=== PATIENT | female | born 1990 | race Caucasian/White ===

== ENCOUNTER 2016-12-17 07:47 | Emergency (ER) | payer BC ==
[~2016-12-17] VITALS: Ht 157.5 cm; Wt 86.0 kg
[2016-12-17 07:51] VITALS: Ht 157.5 cm; Wt 86.0 kg
[2016-12-17] MEDS ORDERED: morphine 4 MG/ML VIAL IV STA (08:08)
[2016-12-17] MEDS ORDERED: ONDANSETRON 4 MG INJ IV STA (08:08)
[2016-12-17 08:39] LABS: BASOPHIL # 0.1 10^3/ul (0.0-0.1); BASOPHILS % 0.6 % (0.0-2.0); EOSINOPHILS # 0.2 10^3/ul (0.0-0.5); EOSINOPHILS % 2.2 % (0.0-7.0); HEMATOCRIT 41.3 % (37.0-47.0); HEMOGLOBIN 13.5 g/dl (12.0-16.0); LYMPHOCYTES # 2.7 10^3/ul (0.8-2.9); LYMPHOCYTES % 33.3 % (15.0-51.0); MEAN CORPUSCULAR HEMOGLOBIN 30.2 pg (29.0-33.0); MEAN CORPUSCULAR HGB CONC 32.7 g/dl (32.0-37.0); MEAN CORPUSCULAR VOLUME 92.4 fl (82.0-101.0); MEAN PLATELET VOLUME 9.3 fl (7.4-10.4); MONOCYTE # 0.6 10^3/ul (0.3-0.9); MONOCYTES % 7.8 % (0.0-11.0); NEUTROPHIL # 4.6 10^3/ul (1.6-7.5); NEUTROPHILS % 55.9 % (39.0-77.0); PLATELET COUNT 463 10^3/UL (140-415); RED BLOOD COUNT 4.47 10^6/ul (4.20-5.40); RED CELL DISTRIBUTION WIDTH 12.5 % (11.5-14.5); WHITE BLOOD COUNT 8.2 10^3/ul (4.8-10.8)
--- NOTE | 2016-12-17 08:40 | ERD ---
ER Documentation Chief Complaint Chief Complaint Complains of abdominal pain Hx of gall stones HPI This is a 26-year-old male who presents the emergency department today complaining of abdominal pain for a while. Patient states that she was told she had gallstones in the past. States that since that time she has been diagnosed she has had intermittent pain and symptoms 2-3 times but the pain was worse this morning when she woke up. States that is bothering her no matter what she eats. States that she is nauseated but has not had any vomiting. States that she was told that her doctor could refer her to surgery however she has been putting it off as she is currently working an a student at [employer]. Denies any fevers or chills, dysuria. ROS All systems reviewed and are negative except as per history of present illness. Medications Home Meds Active Scripts Ondansetron Hcl* (Zofran*) 4 Mg Tablet, 4 MG PO Q6H for NAUSEA AND/OR VOMITING, #30 TAB Prov:MENDEZ PERRY PA-C 12/17/16 Ibuprofen* (Motrin*) 600 Mg Tab, 600 MG PO Q6, #30 TAB Prov:MENDEZ PERRY PA-C 12/17/16 Cephalexin* (Keflex*) 500 Mg Capsule, 500 MG PO QID for 7 Days, CAP Prov:MENDEZ PERRY PA-C 12/17/16 Hydrocodone/Acetaminophen ([place] 5-325 Tablet) 1 Each Tablet, 1 TAB PO Q6H Y for PAIN, #10 TAB Prov:MENDEZ PERRY PA-C 12/17/16 Allergies Allergies: Coded Allergies: No Known Allergy (Unverified , 12/17/16) PMhx/Soc Medical and Surgical Hx: pt denies Medical Hx History of Surgery: Yes (caesarian section) Anesthesia Reaction: No Hx Neurological Disorder: No Hx Respiratory Disorders: No Hx Cardiac Disorders: No Hx Psychiatric Problems: No Hx Miscellaneous Medical Probl: No Hx Alcohol Use: Yes (socially) Hx Substance Use: No Hx Tobacco Use: No Smoking Status: Never smoker Physical Exam Vitals Vital Signs Date Time Temp Pulse Resp B/P Pulse Ox O2 Delivery O2 Flow Rate FiO2 12/17/16 07:51 98.6 84 20 138/72 98 Physical Exam Const: NAD Head: Atraumatic Eyes: Normal Conjunctiva ENT: Normal External Ears, Nose and Mouth. Neck: Full range of motion..~ No meningismus. Resp: Clear to auscultation bilaterally Cardio: Regular rate and rhythm, no murmurs Abd: Soft, epigastric and RUQ tenderness non distended. Normal bowel sounds. No lower abdominal or pelvic pain. No tenderness at McBurney's. Skin: No petechiae or rashes Back: No midline or flank tenderness Ext: No cyanosis, or edema Neur: Awake and alert Psych: Normal Mood and Affect Result Diagram: 12/17/1682712/17/16827 Results 24 hrs Laboratory Tests Test 12/17/16 08:11 12/17/16 08:28 Urine Color YELLOW Urine Clarity CLEAR Urine pH 5.0 Urine Specific [place] 1.026 Urine Ketones NEGATIVEmg/dL Urine Nitrite POSITIVEmg/dL Urine Bilirubin NEGATIVEmg/dL Urine Urobilinogen NEGATIVEmg/dL Urine Leukocyte Esterase NEGATIVELeu/ul Urine Microscopic RBC 1/HPF Urine Microscopic WBC 7/HPF Urine Bacteria FEW/HPF Urine Mucus FEW/HPF Urine Hemoglobin NEGATIVEmg/dL Urine Glucose NEGATIVEmg/dL Urine Total Protein NEGATIVEmg/dl White Blood Count 8.210^3/ul Red Blood Count 4.4710^6/ul Hemoglobin 13.5g/dl Hematocrit 41.3% Mean Corpuscular Volume 92.4fl Mean Corpuscular Hemoglobin 30.2pg Mean Corpuscular Hemoglobin Concent 32.7g/dl Red Cell Distribution Width 12.5% Platelet Count 53320^3/UL Mean Platelet Volume 9.3fl Neutrophils % 55.9% Lymphocytes % 33.3% Monocytes % 7.8% Eosinophils % 2.2% Basophils % 0.6% Nucleated Red Blood Cells % 0.0/100WBC Neutrophils # 4.610^3/ul Lymphocytes # 2.710^3/ul Monocytes # 0.610^3/ul Eosinophils # 0.210^3/ul Basophils # 0.110^3/ul Nucleated Red Blood Cells # 0.010^3/ul Sodium Level 142mmol/L Potassium Level 4.6mmol/L Chloride Level 106mmol/L Carbon Dioxide Level 27mmol/L Anion Gap 14 Blood Urea Nitrogen 9mg/dl Creatinine 0.73mg/dl Glucose Level 100mg/dl Calcium Level 9.3mg/dl Total Bilirubin 0.3mg/dl Direct Bilirubin 0.00mg/dl Indirect Bilirubin 0.3mg/dl Aspartate Amino Transf (AST/SGOT) 27IU/L Alanine Aminotransferase (ALT/SGPT) 44IU/L Alkaline Phosphatase 79IU/L Total Protein 8.2g/dl Albumin 4.3g/dl Globulin 3.90g/dl Albumin/Globulin Ratio 1.10 Lipase 64U/L Current Medications Medications (Trade) Dose Ordered Sig/Sneha Route PRN Reason Start Time Stop Time Status Last Admin Dose Admin Morphine Sulfate (morphine) 4 mg ONCE STAT IV 12/17/16 08:08 12/17/16 08:11 DC 12/17/16 08:33 Ondansetron HCl (Zofran Inj) 4 mg ONCE STAT IV 12/17/16 08:08 12/17/16 08:11 DC 12/17/16 08:32 Ketorolac Tromethamine (Toradol) 30 mg ONCE STAT IV 12/17/16 09:39 12/17/16 09:40 DC 12/17/16 09:42 DIAGNOSTIC IMAGING REPORT Patient: GABBY RUSSELL : 1990 Age: 26 Sex: F MR #: [id number] DOS: 12/17/16 0808 Ordering MD: MENDEZ PERRY PA-C Location: [facility] Room/Bed: PROCEDURE: US Abdomen (right upper quadrant). CLINICAL INDICATION: Abdominal pain TECHNIQUE: Multiple real-time longitudinal and transverse images of the right upper quadrant of the abdomen were acquired utilizing a curved array transducer. Images were reviewed on a high-resolution PACS workstation. COMPARISON: None FINDINGS: The liver is normal in size and echogenicity without focal mass or intrahepatic biliary dilatation. Hepatopetal flow is seen within the portal vein. A 1 cm stone is present dependently within the gallbladder. There is no pericholecystic fluid or gallbladder wall thickening. No intrahepatic biliary dilatation is seen. The common bile duct is borderline prominent measuring 6.43 mm in maximal dimension. The visualized portions of the pancreas are unremarkable with obscuration of the tail of the pancreas. No free fluid is identified. The right kidney measures 11.2 cm in length. There is normal echogenicity within the right kidney. There is no perinephric fluid collection. No hydronephrosis, mass, or calculus is seen. IMPRESSION: 1. Cholelithiasis without evidence of acute cholecystitis. 2. Borderline prominent common bile duct. Correlate with bilirubin levels. If there is concern for cholestasis/choledocholithiasis, consider MRCP. RPTAT: QQ .Ward Hoover MD, Date Time Electronically viewed and signed by .Ward Hoover MD, on 12/17/2016 09:10 .A/ CC: MENDEZ PERRY PA-C Procedures/[facility] This is a 26-year-old female who presents to the emergency department today complaining of upper abdominal pain that started this morning. Patient has known history of gallstones and she did bring the ultrasound report that she had done on November 11, 2016 at an imaging center and the report stated that she had gallstones with wall thickening and possible acute cholecystitis. Patient did follow-up with her primary care doctor but has not seen a general surgeon. Her primary care doctor is Crystal Pineda. Given patient's complaints , physical exam and previous ultrasound taken in October did obtain laboratory workup as well as imaging Laboratory workup shows no elevated white blood cell count. She is not anemic. Platelets are mildly elevated. Electrolytes are within normal limits. Glucose is within normal limits. Liver enzymes are within normal limits. Lipase is within normal limits. Bilirubin is within normal limits. UA shows positive nitrites Urine test is negative RUQ US shows gallstones without evidence of acute cholecystitis. There is no pericholecystic fluid or gallbladder wall thickening. The common bile duct is borderline prominent measuring 6.43 mm in maximal dimension. Symptoms at this time is consistent with biliary colic and urinary tract infection. For acute surgical abdomen at this time. There was some concern about the common bile duct being borderline prominent however patient has normal laboratory workup and no liver enzymes and normal bilirubin I do not feel that she requires admission at this time. Patient was given morphine, Zofran here in the emergency department improved however patient was still complaining of some pain was therefore given Toradol. Indicated her pain improved and was ready to go home. Patient will be given a prescription for short course of [place], Zofran, Motrin and Keflex. Lady did indicate that she does have a primary care physician and will follow up with that doctor to get referral to general surgery. At this time the patient is stable for discharge and outpatient management. Patient should follow up with their PCP in the next 1-2 days. They may return to the emergency department sooner for any persistent or worsening of symptoms. Patient understood and agreed with the plan. Discussed the patient Dr. Aguilera and she is in agreement with the plan Departure Diagnosis: Primary Impression: Biliary colic Additional Impression: UTI (urinary tract infection) Urinary tract infection type: site unspecified Hematuria presence: without hematuria Qualified Code: N39.0 - Urinary tract infection without hematuria, site unspecified Condition: MENDEZ Whelan PA-C Dec 17, 2016 08:40
[2016-12-17 08:47] LABS: ADD UMIC YES; UR ASCORBIC ACID NEGATIVE (NEGATIVE); UR BACTERIA FEW /HPF (NONE SEEN); UR BILIRUBIN (Dip) NEGATIVE (NEGATIVE); UR BLOOD (Dip) NEGATIVE (NEGATIVE); UR CLARITY CLEAR (CLEAR); UR COLOR YELLOW (YELLOW); UR GLUCOSE (Dip) NEGATIVE (NEGATIVE); UR KETONES (Dip) NEGATIVE (NEGATIVE); UR LEUKOCYTE ESTERASE (Dip) NEGATIVE Leu/ul (NEGATIVE); UR MUCUS FEW /HPF (NONE SEEN); UR NITRITE (Dip) POSITIVE (NEGATIVE); UR RBC 1 /HPF (0-5); UR SPECIFIC GRAVITY (Dip) 1.026 (1.003-1.030); UR TOTAL PROTEIN (Dip) NEGATIVE (NEGATIVE); UR UROBILINOGEN (Dip) NEGATIVE (NEGATIVE)
[2016-12-17 09:01] LABS: ALBUMIN 4.3 g/dl (3.3-4.9); ALBUMIN/GLOBULIN RATIO 1.1; BILIRUBIN,INDIRECT 0.3 mg/dl (0-1.1); BILIRUBIN,TOTAL 0.3 mg/dl (0.2-1.3); CALCIUM 9.3 mg/dl (8.4-10.2); CREATININE 0.73 mg/dl (0.44-1.00); POTASSIUM 4.6 mmol/L (3.5-5.1); TOTAL PROTEIN 8.2 g/dl (6.1-8.1)
--- NOTE | 2016-12-17 09:10 | RADRPT ---
PROCEDURE: US Abdomen (right upper quadrant). CLINICAL INDICATION: Abdominal pain TECHNIQUE: Multiple real-time longitudinal and transverse images of the right upper quadrant of th e abdomen were acquired utilizing a curved array transducer. Images were reviewed on a high-resoluti on PACS workstation. COMPARISON: None FINDINGS: The liver is normal in size and echogenicity without focal mass or intrahepatic biliary dilatation. Hepatopetal flow is seen within the portal vein. A 1 cm stone is present dependently within the gall bladder. There is no pericholecystic fluid or gallbladder wall thickening. No intrahepatic biliary dilatation is seen. The common bile duct is borderline prominent measuring 6.43 mm in maximal dime nsion. The visualized portions of the pancreas are unremarkable with obscuration of the tail of the pancreas. No free fluid is identified. The right kidney measures 11.2 cm in length. There is normal echogenicity within the right kidney. There is no perinephric fluid collection. No hydronephrosis, mass, or calculus is seen. IMPRESSION: 1. Cholelithiasis without evidence of acute cholecystitis. 2. Borderline prominent common bile duct. Correlate with bilirubin levels. If there is concern for cholestasis/choledocholithiasis, consider MRCP. RPTAT: QQ .Ward Hoover MD, MD Date Time Electronically viewed and signed by .Ward Hoover MD, on 12/17/2016 09:10 .A/
[2016-12-17] MEDS ORDERED: KETOROLAC 30 MG INJ IV STA (09:39)
[2016-12-17] MEDS ORDERED: CEPH-443 PO (10:25)
[2016-12-17] MEDS ORDERED: HYDR-906 PO (10:25)
[2016-12-17] MEDS ORDERED: IBUP-1542 PO (10:26)
[2016-12-17] MEDS ORDERED: ONDA4TAB8 PO (10:26)
[2016-12-17 10:50] VITALS: BP 114/72; PULSE 63; RESP 20
== END 2016-12-17 10:53 | disposition home or self-care (01) ==
LOC: FTE 07:47
DX: K80.50 Calculus of bile duct without cholangitis or cholecystitis without obstruction (principal); N39.0 Urinary tract infection, site not specified
CPT/HCPCS: 36415; 76705; 80053; 81001; 83690; 85025; 96374; 96375; 99285; J1885; J2270; J2405

== ENCOUNTER 2017-02-02 03:37 | Emergency (ER) | payer BC, OTHER ==
[~2017-02-02] VITALS: Ht 154.9 cm; Wt 84.9 kg
[~2017-02-02 03:37] MED LIST: CEPH-443 PO; HYDR-906 PO; IBUP-1542 PO; ONDA4TAB8 PO
[2017-02-02 03:47] VITALS: Ht 154.9 cm; Wt 84.9 kg
[2017-02-02] MEDS ORDERED: ONDANSETRON 4 MG INJ IV STA ×2 (04:16→05:31)
[2017-02-02] MEDS ORDERED: HYDROmorphONE 1 MG/ML SYG IV STA ×2 (04:16→05:31)
--- NOTE | 2017-02-02 04:35 | ERD ---
ER Documentation Chief Complaint Chief Complaint abdominal pain x 3 hours. hx of gallstones HPI This is a 26-year-old female with a history of gallstones who is complaining of a gallbladder attack. The patient states that 3-1/2 hours ago the patient started having right upper quadrant pain with nausea vomiting 2 this nonbilious nonbloody with radiation of the pain described as crampy to the right back and right shoulder blade. She says she has had many attacks like this in the past. No diarrhea no fever ROS All systems reviewed and are negative except as per history of present illness. Medications Home Meds Active Scripts Ondansetron Hcl* (Zofran*) 4 Mg Tablet, 4 MG PO Q6H for NAUSEA AND/OR VOMITING, #30 TAB Prov:MENDEZ PERRY PA-C 12/17/16 Ibuprofen* (Motrin*) 600 Mg Tab, 600 MG PO Q6, #30 TAB Prov:MENDEZ PERRY PA-C 12/17/16 Cephalexin* (Keflex*) 500 Mg Capsule, 500 MG PO QID for 7 Days, CAP Prov:MENDEZ PERRY PA-C 12/17/16 Hydrocodone/Acetaminophen ([place] 5-325 Tablet) 1 Each Tablet, 1 TAB PO Q6H Y for PAIN, #10 TAB Prov:MENDEZ PERRY PA-C 12/17/16 Allergies Allergies: Coded Allergies: No Known Allergy (Unverified , 02/02/17) PMhx/Soc History of Surgery: Yes (caesarian section) Anesthesia Reaction: No Hx Neurological Disorder: No Hx Respiratory Disorders: No Hx Cardiac Disorders: No Hx Psychiatric Problems: No Hx Miscellaneous Medical Probl: No Hx Alcohol Use: Yes (socially) Hx Substance Use: No Hx Tobacco Use: No Smoking Status: Never smoker FmHx Family History: No coronary disease Physical Exam Vitals Vital Signs Date Time Temp Pulse Resp B/P Pulse Ox O2 Delivery O2 Flow Rate FiO2 02/02/17 03:47 98.6 92 20 128/93 100 Physical Exam Const: Well-developed, well-nourished Head: Atraumatic, normocephalic Eyes: Normal Conjunctiva, PERRLA, EOMI, normal sclera, no nystagmus ENT: Normal External Ears, Nose and Mouth, moist mucus membranes. Neck: Full range of motion. No meningismus, no lymphadenopathy. Resp: Clear to auscultation bilaterally, no wheezing, rhonchi, rales Cardio: Regular rate and rhythm, no murmurs, S1 S2 present Abd: Soft, moderate right upper quadrant tenderness, non distended. Normal bowel sounds, no guarding or rebound, no pulsitile abdominal masses or bruits Skin: No petechiae or rashes, no ecchymosis , no maculopapular rash Back: No midline or flank tenderness Ext: No cyanosis, or edema, FROM x 4, normal inspection, neurovascularly intact x 4 Neur: Awake and alert, STR 5/5 x 4, sensation intact x 4, no focal findings, cerebellum intact Psych: Normal Mood and Affect Result Diagram: 02/02/17 0430 Results 24 hrs Laboratory Tests Test 02/02/17 04:30 White Blood Count Pending Red Blood Count Pending Hemoglobin Pending Hematocrit Pending Mean Corpuscular Volume Pending Mean Corpuscular Hemoglobin Pending Mean Corpuscular Hemoglobin Concent Pending Red Cell Distribution Width Pending Platelet Count Pending Mean Platelet Volume Pending Sodium Level 141mmol/L Potassium Level 3.9mmol/L Chloride Level 102mmol/L Carbon Dioxide Level 25mmol/L Anion Gap 18 Blood Urea Nitrogen 9mg/dl Creatinine 0.68mg/dl Glucose Level 121mg/dl Calcium Level 9.1mg/dl Total Bilirubin 0.4mg/dl Direct Bilirubin 0.00mg/dl Indirect Bilirubin 0.4mg/dl Aspartate Amino Transf (AST/SGOT) 24IU/L Alanine Aminotransferase (ALT/SGPT) 44IU/L Alkaline Phosphatase 83IU/L Total Protein 8.2g/dl Albumin 4.2g/dl Globulin 4.00g/dl Albumin/Globulin Ratio 1.05 Lipase 53U/L Current Medications Medications (Trade) Dose Ordered Sig/Sneha Route PRN Reason Start Time Stop Time Status Last Admin Dose Admin Hydromorphone HCl (Dilaudid) 1 mg ONCE STAT IV 02/02/17 04:16 02/02/17 04:17 DC 02/02/17 04:34 Ondansetron HCl (Zofran Inj) 4 mg ONCE STAT IV 02/02/17 04:16 02/02/17 04:17 DC 02/02/17 04:34 Hydromorphone HCl (Dilaudid) 0.5 mg ONCE STAT IV 02/02/17 05:31 02/02/17 05:32 UNV Morphine Sulfate (morphine) 8 mg ONCE STAT IV 02/02/17 05:31 02/02/17 05:33 DC Hydromorphone HCl (Dilaudid) 0.5 mg ONCE STAT IV 02/02/17 05:31 02/02/17 05:33 DC Ondansetron HCl (Zofran Inj) 4 mg ONCE STAT IV 02/02/17 05:31 02/02/17 05:33 DC Procedures/MDM PROCEDURE: Abdominal ultrasound, limited. CLINICAL INDICATION: Abdominal pain. TECHNIQUE: Multiple real-time images were acquired of the patient's right upper abdomen utilizing a high resolution transducer. COMPARISON: 12/17/2016. FINDINGS: The liver demonstrates normal echogenicity and size measuring 15.7 cm. There is no focal mass or intrahepatic biliary ductal dilatation. The portal vein is patent. The gallbladder is not distended. Multiple echogenic gallstones are identified. There is no pericholecystic fluid or gallbladder wall thickening. The common bile duct measures 6.4 mm in maximal dimension. The visualized portions of the pancreas are unremarkable. No free fluid is identified. The right kidney is normal size and echogenicity measuring 10.1 cm. There is no focal renal mass or echogenic calculus identified. There is no obstructive uropathy. IMPRESSION: Cholelithiasis without ultrasound evidence of cholecystitis. Mildly dilated common bile duct measuring 6.4 mm. .Tee Dasilva MD, MD Date Time Electronically viewed and signed by .Tee Dasilva MD, MD on 02/02/2017 05:29 .T/ CC: IRINA GARZA DO Patient has a slightly dilated duct at 6.4. However she has no elevated liver function test. Discussed with her if her pain continues or worsens she needs to come back because she may have a stone stuck and is not showing any of elevated liver function test at this point. Departure Diagnosis: Primary Impression: Gallstones Condition: Stable IRINA GARZA DO Feb 02, 2017 04:35
[2017-02-02 04:51] LABS: BASOPHIL # 0.1 10^3/ul (0.0-0.1); BASOPHILS % 0.4 % (0.0-2.0); EOSINOPHILS # 0.1 10^3/ul (0.0-0.5); HEMATOCRIT 39.6 % (37.0-47.0); HEMOGLOBIN 13.4 g/dl (12.0-16.0); LYMPHOCYTES # 2.6 10^3/ul (0.8-2.9); LYMPHOCYTES % 18.6 % (15.0-51.0); MEAN CORPUSCULAR HEMOGLOBIN 30.2 pg (29.0-33.0); MEAN CORPUSCULAR HGB CONC 33.8 g/dl (32.0-37.0); MEAN CORPUSCULAR VOLUME 89.4 fl (82.0-101.0); MEAN PLATELET VOLUME 9.5 fl (7.4-10.4); MONOCYTE # 0.6 10^3/ul (0.3-0.9); MONOCYTES % 4.6 % (0.0-11.0); NEUTROPHIL # 10.5 10^3/ul (1.6-7.5); PLATELET COUNT 458 10^3/UL (140-415); RED BLOOD COUNT 4.43 10^6/ul (4.20-5.40); RED CELL DISTRIBUTION WIDTH 12.4 % (11.5-14.5)
[2017-02-02 05:07] LABS: ALBUMIN 4.2 g/dl (3.3-4.9); ALBUMIN/GLOBULIN RATIO 1.05; BILIRUBIN,INDIRECT 0.4 mg/dl (0-1.1); BILIRUBIN,TOTAL 0.4 mg/dl (0.2-1.3); CALCIUM 9.1 mg/dl (8.4-10.2); CREATININE 0.68 mg/dl (0.44-1.00); POTASSIUM 3.9 mmol/L (3.5-5.1); TOTAL PROTEIN 8.2 g/dl (6.1-8.1)
--- NOTE | 2017-02-02 05:29 | RADRPT ---
PROCEDURE: Abdominal ultrasound, limited. CLINICAL INDICATION: Abdominal pain. TECHNIQUE: Multiple real-time images were acquired of the patient's right upper abdomen utilizing a high resolution transducer. COMPARISON: 12/17/2016. FINDINGS: The liver demonstrates normal echogenicity and size measuring 15.7 cm. There is no focal mass or in trahepatic biliary ductal dilatation. The portal vein is patent. The gallbladder is not distended. Multiple echogenic gallstones are identified. There is no pericholecystic fluid or gallbladder wa ll thickening. The common bile duct measures 6.4 mm in maximal dimension. The visualized portions of the pancreas are unremarkable. No free fluid is identified. The right kidney is normal size and echogenicity measuring 10.1 cm. There is no focal renal mass or echogenic calculus identified. There is no obstructive uropathy. IMPRESSION: Cholelithiasis without ultrasound evidence of cholecystitis. Mildly dilated common bile duct measuring 6.4 mm. .Tee Dasilva MD, MD Date Time Electronically viewed and signed by .Tee Dasilva MD, MD on 02/02/2017 05:29 .T/
[2017-02-02] MEDS ORDERED: morphine 4 MG/ML VIAL IV STA (05:31)
[2017-02-02] MEDS ORDERED: HYDROmorphONE 0.5 MG/0.5 ML SYG IV ONE (05:31)
[2017-02-02] MEDS ORDERED: HYDR-902 PO (05:40)
[2017-02-02] MEDS ORDERED: ONDA4TAB14 PO (05:40)
[2017-02-02] MEDS ORDERED: DICY10CA60 PO (05:40)
[2017-02-02 05:48] LABS: URINE BLOOD (Dip) POC Trace-intact (NEGATIVE)
[2017-02-02] MEDS ORDERED: DICYCLOMINE 20 MG INJ IM ONE (06:00)
[2017-02-02 07:23] VITALS: BP 132/82; PULSE 74; RESP 18; TEMP 98.4
== END 2017-02-02 07:16 | disposition home or self-care (01) ==
LOC: E/R 03:37
DX: K80.20 Calculus of gallbladder without cholecystitis without obstruction (principal); R40.2142 Coma scale, eyes open, spontaneous, at arrival to emergency department; R40.2252 Coma scale, best verbal response, oriented, at arrival to emergency department; R40.2362 Coma scale, best motor response, obeys commands, at arrival to emergency department
CPT/HCPCS: 36415; 76705; 80053; 81003; 83690; 85025; 96372; 96374; 96375; 96376; 99285; J0500; J1170; J2405